=== PATIENT | male | born 1965 | race Caucasian/White ===

== ENCOUNTER 2017-10-18 16:19 | Outpatient (CLI) | payer SELFPAY ==
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
== END 2017-10-18 16:20 ==
LOC: RAD 16:19
PROVIDERS: ATTEND Family Medicine
DX: M25.561 Pain in right knee (principal)
CPT/HCPCS: 73562